=== PATIENT | female | born 1965 | race Caucasian/White ===

== ENCOUNTER 2017-09-22 08:59 | Day surgery (SDC) | payer MEDICAID ==
[~2017-09-22] VITALS: Ht 152.4 cm; Wt 83.9 kg
[~2017-09-22 08:59] MED LIST: AMLO10TA80 PO; BALANCED SALT IRRIG SOLN COMB1 500ML OP SCH; CARV12.545 PO; LISI1TAB13 PO
[2017-09-22] MEDS ORDERED: SODIUM CHLORIDE 0.9% 1,000 ML IV SCH (09:45)
[2017-09-22] MEDS ORDERED: PHENYLEPHRINE HCL 10% OPHTH DROPS 5ML RIGHTEYE ONE (09:50)
[2017-09-22] MEDS ORDERED: TROPICAMIDE 1% OPHTH DROPS 15ML RIGHTEYE ONE (09:50)
[2017-09-22] MEDS ORDERED: CYCLOPENTOLATE HCL 1% OPHTH DROPS 2ML RIGHTEYE ONE (09:50)
[2017-09-22] MEDS ORDERED: INSULIN LISPRO 100 UNITS/ML SUBCUT NR (09:55)
[2017-09-22] MEDS ORDERED: ACETYLCHOLINE CHLORIDE INTRAOCULAR SOLUTION 1:100 ELECTROLYTE DILUENT IO ONE (10:45)
[2017-09-22] MEDS ORDERED: TROPICAMIDE 1% OPHTH DROPS 15ML ONE (10:45)
[2017-09-22] MEDS ORDERED: NEO/POLYMYX B SULF/DEXAMETH OPHTH OINT 3.5GM ONE (10:45)
[2017-09-22] MEDS ORDERED: BUPIVACAINE HCL/PF 0.75% (7.5MG/ML) 10ML ONE (10:45)
[2017-09-22] MEDS ORDERED: LIDOCAINE HCL 2%/EPINEPHRINE 1:100,000 20 ML VIAL INFIL ONE (10:45)
[2017-09-22] MEDS ORDERED: PHENYLEPHRINE HCL 2.5% OPHTH DROPS 2ML ONE (10:45)
[2017-09-22] MEDS ORDERED: TETRACAINE 0.5% OPHTH DROPS 4ML ONE (10:45)
[2017-09-22] MEDS ORDERED: PREDNISOLONE ACETATE 1% OPHTH DROPS 1ML ONE (10:45)
[2017-09-22] MEDS ORDERED: CYCLOPENTOLATE HCL 1% OPHTH DROPS 2ML ONE (10:45)
[2017-09-22] MEDS ORDERED: PHENYLEPHRINE HCL 10% OPHTH DROPS 5ML ONE (10:45)
[2017-09-22] MEDS ORDERED: BALANCED SALT IRRIG SOLN 15ML ONE (10:45)
[2017-09-22] MEDS ORDERED: HYALURONATE SODIUM 14 MG/ML 0.85ML SYRINGE IO ONE (11:08)
[2017-09-22] MEDS ORDERED: MIDAZOLAM HCL 2 MG/2 ML VIAL ONE (11:14)
[2017-09-22] MEDS ORDERED: LABETALOL HCL 5MG/ML VIAL 20ML IV PRN (11:30)
[2017-09-22] MEDS ORDERED: ONDANSETRON HCL 4MG/2ML VIAL IV PRN (11:30)
[2017-09-22] MEDS ORDERED: ACETAMINOPHEN 500MG TABLET PO PRN (12:00)
[2017-09-22] MEDS ORDERED: METF10002 PO (12:32)
== END 2017-09-22 13:45 | disposition home or self-care (01) ==
LOC: OR 08:59
PROVIDERS: ATTEND Ophthalmology
DX: H25.89 Other age-related cataract (principal); I10 Essential (primary) hypertension; E11.9 Type 2 diabetes mellitus without complications; E78.5 Hyperlipidemia, unspecified; E66.9 Obesity, unspecified; Z79.899 Other long term (current) drug therapy; Z79.84 Long term (current) use of oral hypoglycemic drugs
CPT/HCPCS: 66984; 82962; J1815; J2250; J3490; J7030; V2632